=== PATIENT | male | born 1940 | race Caucasian/White ===

== ENCOUNTER 2025-05-13 11:11 | Inpatient (IN) | payer MEDICARE, BC ==
[2025-05-13 13:44] VITALS: BMI 30.1
[2025-05-13] MEDS ORDERED: Ondansetron PF 4 MG/2 ML Vial IVP PRN (16:06)
[2025-05-13] MEDS ORDERED: Senokot S 8.6-50 MG TAB PO PRN (16:09)
[2025-05-13] MEDS: Acetaminophen 325 MG TAB PO PRN (19:54)
[2025-05-13] MEDS: Heparin 5,000 UNITS/ML VIAL SC SCH (20:23)
[2025-05-13] MEDS: Melatonin 3 MG TAB PO PRN (20:23)
[2025-05-13] MEDS: Mirtazapine 15 MG TAB PO SCH (20:23)
[2025-05-13] MEDS: Famotidine 20 MG TAB PO SCH (21:13)
[2025-05-14 05:07] LABS: #Basophils 0.1 thou/uL (0.0-0.2); #Eosinophils 0.4 thou/uL (0.0-0.7); #Lymphocytes 2.3 thou/uL (1.20-3.40); #Monocytes 0.8 thou/uL (0.11-0.59); #Neutrophils 4.2 thou/uL (1.40-6.50); %Basophils 1.1 % (0.0-1.0); %Eosinophils 4.8 % (0.0-10.0); %Lymphocytes 29.3 % (21.0-51.0); %Monocytes 10.3 % (0.0-10.0); %Neutrophils 54.5 % (42.0-75.0); Hematocrit 41.0 % (42.0-52.0); Hemoglobin 13.5 g/dL (14.0-18.0); Mean Corpuscular Hemoglobin 28.9 pg (27.0-31.0); Mean Corpuscular Volume 87.6 fl (78.0-98.0); Platelet Count 412 10x3/uL (130-400); Red Blood Cell (RBC) Count 4.68 mill/uL (4.70-6.10); White Blood Cell (WBC) Count 7.8 10x3/uL (4.8-10.8)
[2025-05-14 05:22] LABS: Anion Gap 16 mmol/L (10-20); BUN (Urea Nitrogen) 20 mg/dL (8.4-25.7); Calc. Creatinine Clearance 57 mL/min (70-130); Calcium 9.0 mg/dL (7.8-10.44); Carbon Dioxide 20 mmol/L (23-31); Chloride 106 mmol/L (98-107); Glucose 180 mg/dL (83-110); Potassium 4.3 mmol/L (3.5-5.1); Sodium 138 mmol/L (136-145)
[2025-05-14] MEDS: Spironolactone 25 MG TAB PO SCH (08:48)
[2025-05-14] MEDS: Rosuvastatin 10 MG TAB PO SCH (08:48)
[2025-05-14] MEDS: Glimepiride 2 MG TAB PO SCH (08:48)
[2025-05-14] MEDS: Lantus 1000 UNITS/10 ML VIAL SC SCH (08:53)
[2025-05-14] MEDS: Alogliptin 6.25 MG TAB PO SCH (09:08)
[2025-05-14] MEDS ORDERED: Dextrose 50% Abboject 50 ML SYRINGE SLOW IVP PRN (19:15)
[2025-05-14] MEDS ORDERED: Glucagon 1 MG/ML KIT IM PRN (19:15)
[2025-05-22 07:53] VITALS: BP 145/81; TEMP 97.8
[2025-05-22 08:35] VITALS: BMI 30.6
== END 2025-05-22 16:20 | disposition home or self-care (01) | DRG 945 ==
LOC: MADMS 13:17
PROVIDERS: ADMIT Family Medicine; ATTEND Family Medicine
PROC: F07Z5ZZ Bed Mobility Treatment (ICD-10-PCS; principal; 2025-05-13)
PROC: F08Z0ZZ Bathing/Showering Techniques Treatment (ICD-10-PCS; 2025-05-13)
DX: R53.81 Other malaise (principal); A41.9 Sepsis, unspecified organism; N39.0 Urinary tract infection, site not specified; Z66 Do not resuscitate; I10 Essential (primary) hypertension; E03.9 Hypothyroidism, unspecified; J44.9 Chronic obstructive pulmonary disease, unspecified; E11.9 Type 2 diabetes mellitus without complications; Z88.8 Allergy status to other drugs, medicaments and biological substances; Z99.81 Dependence on supplemental oxygen; N40.0 Benign prostatic hyperplasia without lower urinary tract symptoms; Z98.890 Other specified postprocedural states; E78.5 Hyperlipidemia, unspecified; R26.89 Other abnormalities of gait and mobility; Z97.8 Presence of other specified devices; Z79.899 Other long term (current) drug therapy; Z79.890 Hormone replacement therapy; Z79.4 Long term (current) use of insulin
CPT/HCPCS: 36415; 36416; 80048; 85025; J1644; J1815; J2543